=== PATIENT | female | born 2005 | race Caucasian/White ===

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

== ENCOUNTER 2024-08-13 08:49 | Outpatient (CLI) | payer MEDICAID, SELFPAY ==
--- NOTE | 2024-08-13 08:53 | USR_ITS ---
PROCEDURE INFORMATION: Exam: US After First Trimester, Transabdominal Exam date and time: 08/13/2024 9:03 AM Age: 18 years old Clinical indication: Screening exam; Routine US, uterus; Additional info: Anatomy check/supervision of second trimester LABS AND CLINICAL REPORTS: Gestational age (Established): 30 w 1 d Estimated due date (Established): 10/21/2024 TECHNIQUE: Imaging protocol: Real-time transabdominal obstetrical ultrasound of the maternal pelvis and a second or third trimester with image documentation. COMPARISON: No relevant prior studies available. FINDINGS: Gestation: Single live intrauterine gestation. heart rate: 148 bpm. presentation and position: Cephalic. Placenta: Unremarkable. No subchorionic bleed. Placenta is posterior. Amniotic fluid (Qualitative): Amniotic fluid is normal for gestational age. ANATOMY: midline falx: Normal cerebellum: Normal lateral ventricles: Normal cisterna magna: Normal choroid plexus: Normal face: Normal heart four-chamber view, heart size and position: Normal heart right ventricular outflow tract: Normal heart left ventricular outflow tract: Normal diaphragm: Normal kidneys: Normal stomach: Normal urinary bladder: Normal spine: Normal Umbilical cord and insertion: Normal. Normal 3 vessel cord upper limbs: Normal lower limbs: Normal external genitalia: Normal BIOMETRY: Gestational age (AUA): 30 weeks 3 days Estimated due date (AUA): 10/19/2024 Estimated weight: 1533.46 g. EFW by AC, BPD, FL, HC, [place] 1985, 40% percentile Biparietal diameter (BPD): 7.73 cm. EGA (BPD) is 31 w 0 d. 65.8 % percentile Head circumference (HC): 27.64 cm. EGA (HC) is 30 w 2 d. 17.8 % percentile Abdominal circumference (AC): 26.03 cm. EGA (AC) is 30 w 1 d. 46.1 % percentile Femur length (FL): 5.75 cm. EGA (FL) is 30 w 1 d. 34.2 % percentile HC/AC: 1.06. (Normal range: 0.97 - 1.18) FL/HC: 20.8. (Normal range: 19.24 - 21.36) FL/BPD: 74.39. (Normal range: 71 - 87) FL/AC: 22.09. (Normal range: 20 - 24) MATERNAL: Uterus: Unremarkable. Cervix: Unremarkable closed cervix measuring 3.3 cm in length. Right ovary/adnexa: Obscured by lack of adequate acoustic window. Left ovary/adnexa: Obscured by lack of adequate acoustic window. Intraperitoneal space: No intraperitoneal free fluid. US/US OB >= 14 weeks fetus [id number] IMPRESSION: Single live intrauterine gestation with estimated age of 30 weeks 3 days and weight of 1533 g.
== END 2024-08-13 08:50 | disposition home or self-care (01) ==
LOC: RAD 08:52
PROVIDERS: PCP Family Medicine; Visit Provider Family Medicine
DX: Z34.82 Encounter for supervision of other normal pregnancy, second trimester (principal)
CPT/HCPCS: 76805

== ENCOUNTER 2024-10-24 18:21 | Inpatient (IN) | payer MEDICAID, SELFPAY ==
[2024-10-24] VITALS (11 sets, daily range): BP systolic 120–139; BP diastolic 78–88; PULSE 71–97; RESP 15; TEMP 36.8; BMI 30.4
[2024-10-24] MEDS: miSOPROStol 100 mcg tablet 25 MCG VAGINAL (12:07)
[2024-10-24 12:23] LABS: Basophils % 0.4 %; Eosinophils # 0.2 10^3/uL (0.0-0.8); Eosinophils % 2.5 %; Hematocrit 38.9 % (36-47); Lymphocytes # 1.1 10^3/uL (1.5-6.5); Lymphocytes % 14.8 %; Mean Corpuscular HGB Conc 32.6 g/dL (30-55); Mean Corpuscular Hemoglobin 28.7 pg (27-33); Mean Corpuscular Volume 87.8 fl (85-98); Mean Platelet Volume 12.1 fL (7.4-10.4); Monocytes # 0.5 10^3/uL (0.2-0.9); Neutrophils # 5.42 10^3/uL (1.8-8.0); Neutrophils % 74.9 %; Nucleated Red Blood Cells % 0 %; Platelet Count 162 10^3/cmm (157-399); Red Blood Count 4.43 10^6/uL (3.85-5.65); Red Cell Distribution Width 15.8 % (12.1-15.1); White Blood Count 7.24 10^3/uL (4.5-13.0)
[2024-10-24] MEDS: ampicillin 2,000 MG in sodium chloride 0.9% (plus) 50 ML 100 MG IV (12:37)
--- NOTE | 2024-10-24 13:19 | PM.OBGYHP ---
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 course complicated by mild anemia- on iron supplementation. Denies cramping/contractions, LOF, vaginal bleeding. Good movement. care was good- presented as transfer of care with good initial care at [facility]. Present Details : 1 Para: 0 Labs Blood type OB HPI: O (+) positive Rubella: Immune RPR: Negative GBS: Positive HBsAG: Negative Other Lab Information: INitial H/H 14.4/43.8 HIV negative HCV Ab negative NIPT low risk 1hr GTT pased (119) 3rd trimester H/H 10.9/32.1 Review of Systems Const: Reports: chills; Denies: fever(s) Card: Denies: chest pain or palpitations Resp: Reports: dyspnea and productive cough : Denies: genital lesions Skin/Breast: Denies: rash or pruritus Medications/Allergies Home Medications ?Medication ?Instructions ?Recorded ?Confirmed ?Last Taken ?Type amoxicillin 875 mg tablet 875 mg PO BID 10 days #20 tabs 06/21/22 06/21/22 Unknown Rx Allergies Allergy/AdvReac Type Severity Reaction Status Date / Time No Known Allergies Allergy Verified 06/21/22 14:41 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: Social History Smoking and tobacco/nicotine status: never used tobacco/nicotine Second hand smoke exposure: No History History History 2 Term 0 0 Miscarriages/Ectopic 1 Living Children 0 Vitals/I&O/Wt Last Vital Signs Pulse 97 10/24/24 11:43 Resp 15 10/24/24 11:57 BP 127/78 10/24/24 11:43 O2 Del Method Room Air 10/24/24 11:41 Weight last 48 hrs Weight 177 lb Physical Exam Const: COMMON NORMALS: no acute distress, patient oriented x3, healthy appearing and well nourished Resp: COMMON NORMALS: normal respiratory effort and clear to auscultation bilaterally Cardio: COMMON NORMALS: regular rate, regular rhythm and No murmurs present (Cardio) : OTHER: Gravid, S=D Extremity: NARRATIVE EXTREMITY EXAM: No LE edema Psych: COMMON NORMALS: normal affect and speech normal Data 10/24/24 11:35 Results Labs OB ([facility]): Blood Type O Positive 10/24/24 Antibody Screen Negative 10/24/24 Hct 38.9 % (36-47) 10/24/24 Hgb 12.70 g/dL (12.4-14.8) 10/24/24 Rho(D) Type Rh positive 10/24/24 Plt Count 162 10^3/cmm (157-399) 10/24/24 OB Ultrasound Anatomy US EFW 40% at approx 30 weeks A&P Assessment and plan (1) Encounter for induction of labor: (2) Term : Plan 19yo at 40w3d presenting for induction of labor. Routine CBC, Blood typing. Initial SVE 1/70/-3, Category I FHT Cytotec dose x 1 with recheck in 4 hours unless indicated earlier Intermittent EFM as long as Cateogry I FHT Fentanyl protocol, may have epidural when desired Discussed plan of care with patient and agreeable to proceed PDMP PDMP Reviewed: Not Reviewed Attestations Medical Necessity Statement*: Nai Cowan's hospital stay will require greater than 2 midnights for labor and delivery and care Coding Level of Care Code Acute Code for Chg Fwd Diagnoses Encounter for induction of labor Z34.90 Term Z34.90
[2024-10-24] MEDS: dextrose 5%-lactated ringers 1,000 ML 125 ML IV (13:37)
[2024-10-24] MEDS: ampicillin 1,000 MG in sodium chloride 0.9% (plus) 50 ML 100 MG IV ×2 (17:19→21:36)
[2024-10-24] MEDS: lactated ringers 1,000 ML 999 ML (21:00)
--- NOTE | 2024-10-24 21:02 | ANES.PROC ---
Documented by User: Carline Rose CRNA 10/24/24 21:03 Anesthesia Procedures Procedure/Date: 10/24/24 US guided PIV placed by [employer] ENGINEER at this time. 20g R FA. Documented by User: Johnny Edouard DO 10/25/24 09:01 Anesthesia Procedures Procedure/Date: 10/25/24
--- NOTE | 2024-10-24 21:05 | ANES.PREANE2 ---
Pre-Anesthetic Assessment Height/Weight: Height 1.63 m Weight 80.286 kg Pulse Resp BP O2 Del Method 88 15 126/82 Room Air 10/24/24 20:10 10/24/24 11:57 10/24/24 20:10 10/24/24 11:41 Preop Diagnosis: IUP labor epidural Familial anesthetic complications: none Was Beta Raegan taken within 24 hours: N/A Was Clonidine taken within 24 hours: N/A Social No alcohol and No tobacco Exam alert and oriented x 3 Airway Submandibular: within normal limits Cervical ROM: within normal limits Mallampati: Class II Dentition: full History/ROS No significant complaints Anesthetic Plan ASA status: 2 Anesthesia: Anesthesia Evaluation and Regional (specify below) Medications/Allergies Home Medications ?Medication ?Instructions ?Recorded ?Confirmed ?Last Taken ?Type amoxicillin 875 mg tablet 875 mg PO BID 10 days #20 tabs 06/21/22 06/21/22 Unknown Rx Allergies Allergy/AdvReac Type Severity Reaction Status Date / Time No Known Allergies Allergy Verified 06/21/22 14:41 Current Medications Generic Name Dose Route Start Last Admin Trade Name Bertha PRN Reason Stop Dose Admin Dextrose/Lactated Ringer's 1,000 mls @ 125 mls/hr 10/24/24 11:45 10/24/24 13:37 Dextrose 5%-Lactated Ringers IV 125 mls/hr .Q8H MARIEL Administration Ampicillin Sodium 1,000 mg/ 50 mls @ 100 mls/hr 10/24/24 16:30 10/24/24 17:19 Sodium Chloride IV 100 mls/hr Q4H MARIEL Administration Protocol [facility] Anesthesia Social History Smoking and tobacco/nicotine status: never used tobacco/nicotine Second hand smoke exposure: No Female Reproductive History : 1 Data Anesthesia 10/24/24 11:35 Short CBC 10/24/24 Range/Units 11:35 WBC 7.24 (4.5-13.0) 10^3/uL Hgb 12.70 (12.4-14.8) g/dL Hct 38.9 (36-47) % MCV 87.8 (85-98) fl Plt Count 162 (157-399) 10^3/cmm Neut % (Auto) 74.9 % Neut # (Auto) 5.42 (1.8-8.0) 10^3/uL Blood Bank 10/24/24 11:35 Blood Type O Positive Rho(D) Type Rh positive Antibody Screen Negative Cardiac Studies: No Data to Display
[2024-10-24 21:57] LABS: Actim Prom Negative
[2024-10-25] VITALS (89 sets, daily range): BP systolic 114–172; BP diastolic 58–99; PULSE 66–99; RESP 16–18; TEMP 36.5–38.5; O2SAT 89–100
[2024-10-25] MEDS: ampicillin 1,000 MG in sodium chloride 0.9% (plus) 50 ML 100 MG IV ×5 (01:30→16:26)
[2024-10-25] MEDS: oxytocin 30 UNIT/500 ML BAG IV (02:00)
[2024-10-25] MEDS: fentaNYL 50 mcg/mL INJ 2mL IVP ×2 (05:45→07:10)
[2024-10-25] MEDS: lactated ringers 1,000 ML 999 ML IV (07:45)
[2024-10-25] MEDS: ondansetron 2 mg/ML SDV 2 mL 4 MG IVP ×2 (08:15→16:23)
[2024-10-25] MEDS: ROPivacaine syringe 100 MG/50 ML SYRINGE 10 MG EPIDURAL ×2 (08:56→12:44)
--- NOTE | 2024-10-25 09:01 | P.ANES_ITS ---
Anesthesia Procedures Procedure/Date: 10/25/24 Epidural: Time Out Performed: Yes Consents Signed: Procedure Consent Consent: requested by attending/covering physician and from patient Lumbar Level: L3-L4 Epidural position: sitting Epidural procedure: sterile prep of area, 1% lidocaine to numb the area, 18 g needle, negative for paresthesia p assed, neg for paresthesia, test dose given, 1.5% xylocaine 1:200k epi, 0.2% Ropivacaine bolus ml (5mls), placed PCEA, no systemic response, sterile dressing applied, L.U.D. no apparent complications and 0.2% Ropiavacaine @ mls/hr (10mls/hr)
[2024-10-25] MEDS: lidocaine 2% INJ 20 mL INJECTION (18:11)
--- NOTE | 2024-10-25 18:52 | PM.DELIVERY ---
Delivery Note: Date of delivery: October 25, 2024 Pre-delivery diagnoses: Term Post-delivery diagnoses: Term delivery of viable male Procedure: Spontaneous Vaginal Delivery Delivering Physician: Milly Clayton DO Estimated blood loss (mL): 350 Pre-Delivery Course: Admitted on 10/24/24 for induction of labor. Initial SVE 1/70/-3 and given 1 dose cytotec. Rechecked 4 hours later with SVE 1/80/-3. At this time toco with q1-3 minutes contractions. Given bolus IV fluids with intermittent monitoring over several hours and contractions spaced out and was started on low dose pitocin. AROM then performed at 7:40am on 10/25/24. She then gradually progressed to complete. FHT Category 1 throughout. Delivery: Patient progressed to complete. Patient placed in lithotomy position. Patient pushed with adequate effort. Head delivered in JUAN position, loose nuchal cord x 1 was present and easily reduced. Shoulders and rest of body delivered without difficulty with adequate epidural anesthesia. Mouth and nares bulb suctioned. Cord clamped and cut after 1 minute delay. placed on maternal abdomen. Placenta spontaneously delivered and noted to be intact. Pitocin started. Fundus was noted to be firm. The vagina and cervix were inspected and midline 2nd degree and left labial abrasion lacerations were noted. 2nd degree laceration repaired with 3-0 vicryl. Additional 6cc lidocaine without epinephrine used for additional local anesthesia. Fundus was again noted to be firm. Male born at 1800 on 10/25/24 at 40w4d with 8/9 weighing 9lb 7oz and measuring 22.25 in length, 15.5 head circumference, 13.5 inch chest circumference Placenta noted to be intact with centrally inserted umbilical cord and 3 vessel cord, numerous calcifications noted Complications: Maternal none Infant none History History History 2 Term 1 0 Miscarriages/Ectopic 1 Living Children 1 A&P Assessment and plan (1) Spontaneous vaginal delivery: PDMP PDMP Reviewed: Not Reviewed Coding Level of Care Code Acute Code for Chg Fwd Diagnoses Spontaneous vaginal delivery O80
[2024-10-25] MEDS: oxytocin 30 UNIT/500 ML BAG 600 UNIT IV (19:00)
[2024-10-25] MEDS: ibuprofen 800 mg tablet PO (20:06)
[2024-10-25] MEDS: acetaminophen 325 mg Tablet 650 MG PO (20:07)
[2024-10-26 00:35] VITALS: BP 134/75; PULSE 72; RESP 16; TEMP 36.8; O2SAT 97
[2024-10-26 02:00] VITALS: BP 124/75; PULSE 96; RESP 16; TEMP 36.5; O2SAT 96
--- NOTE | 2024-10-26 03:21 | PC.NURSE ---
Straight cath patient at 1945 d/t patient being unable to urinate on bedpan. Fundus rising and folley had been removed several hours before.
[2024-10-26 04:40] VITALS: BP 115/71; PULSE 66; RESP 15; TEMP 36.6; O2SAT 98
[2024-10-26 07:21] LABS: Hematocrit 32.8 % (36-47); Mean Corpuscular HGB Conc 32.3 g/dL (30-55); Mean Corpuscular Hemoglobin 28.5 pg (27-33); Mean Corpuscular Volume 88.2 fl (85-98); Mean Platelet Volume 12.2 fL (7.4-10.4); Platelet Count 147 10^3/cmm (157-399); Red Blood Count 3.72 10^6/uL (3.85-5.65); Red Cell Distribution Width 15.9 % (12.1-15.1); White Blood Count 13.61 10^3/uL (4.5-13.0)
--- NOTE | 2024-10-26 07:39 | P.PN_ITS ---
TITLE MANAGER Subjective 2 Subjective: Interval history: Doing well overnight. She has been ambulating without difficulty and has urinated. Passing gas but has not yet had a bowel movement. Reports her bleeding is a little bit heavier than a period and has been consistent. Changing a pad every couple of hours. Her pain is well-controlled with p.o. medications. She is eating without nausea or vomiting. Labor: Station: +2 Amniotic Membrane Status: Ruptured Monitor Mode: Palpation Contraction Pattern: Regular Vitals/I&O/Wt Last Vital Signs Temp 97.8 F 10/26/24 04:40 Pulse 66 10/26/24 04:40 Resp 15 10/26/24 04:40 BP 115/71 10/26/24 04:40 Pulse Ox 98 10/26/24 04:40 O2 Del Method Room Air 10/26/24 04:40 10/25/24 10/26/24 10/26/24 22:59 06:59 14:59 Intake Total 1582.667 / 2747.000 Output Total 900 / 900 Balance 682.667 / 1847.000 Weight last 48 hrs Weight 177 lb Physical Exam 2 Const: COMMON NORMALS: no acute distress, patient oriented x3, healthy appearing and well nourished Resp: COMMON NORMALS: normal respiratory effort and clear to auscultation bilaterally AUSCULTATION: clear to auscultation bilaterally Cardio: COMMON NORMALS: regular rate, regular rhythm and No murmurs present (Cardio) RATE: regular rate RHYTHM: regular rhythm : OTHER: Uterine fundus firm and at the umbilicus Extremity: NARRATIVE EXTREMITY EXAM: No LE edema Neuro: COMMON NORMALS: patient oriented x3 Psych: COMMON NORMALS: normal affect and speech normal SPEECH: Yes normal speech Urinary Catheter Management: [place]: Cath Placed During This Visit: yes, but has since been removed by the nurse Reason for Continuing Indwelling Catheter: Decision to DC Catheter Urinary Catheter Date of Insertion: 10/25/24 Urinary Catheter Time of Insertion: 10:25 Date Urinary Catheter Removed: 10/25/24 Time Urinary Catheter Discontinued: 14:55 Data 10/26/24 06:29 A&P Assessment and plan (1) Spontaneous vaginal delivery: (2) Anemia: Plan PPD#1 s/p without complication Encourage ambulation Regular diet May shower Continue scheduled ibuprofen with as needed Tylenol as needed Routine vitals per protocol CBC with mild anemia and appropriate drop since delivery?will plan to continue once daily iron supplement Anticipate discharge home tomorrow PDMP PDMP Reviewed: Not Reviewed Attestations 2 Medical Necessity Statement*: Cooperraza Barry Cowan's hospital stay will require greater than 2 midnights for labor and delivery and care Coding Level of Care Code Acute Code for Chg Fwd Diagnoses Spontaneous vaginal delivery O80 Anemia D64.9
[2024-10-26 09:30] VITALS: BP 133/76; PULSE 90; RESP 16; TEMP 36.6; O2SAT 98
[2024-10-26] MEDS: PRENATAL VIT NO.130/IRON/FOLIC 1 EACH TABLET PO (09:34)
[2024-10-26] MEDS: ferrous sulfate EC 325 mg Tablet PO (09:34)
[2024-10-26] MEDS: docusate sodium 100 mg Capsule PO ×2 (09:34→17:41)
[2024-10-26] MEDS: ibuprofen 800 mg tablet PO ×3 (09:34→20:38)
--- NOTE | 2024-10-26 10:33 | ANE.PACU2 ---
Inpatient post-anesthesia follow up: Airway intact: Yes Vital signs: Temperature 97.6 F Pulse Rate 65 Respiratory Rate 15 Blood Pressure 103/56 Pulse Oximetry 98 Oxygen Delivery Me thod Room Air Oxygen Flow Rate Fraction of Inspir ed Oxygen Hydration adequate: Yes Nausea and vomiting: No Pain level: 1 Mental status: Baseline Epidural Start/End: Epidural Start Date: 10/25/24 Epidural Start Time: 08:48 Epidural End Date: 10/26/24 Epidural End Time: 03:16
[2024-10-26 16:00] VITALS: BP 125/79; PULSE 87; RESP 16; TEMP 36.6
[2024-10-26 20:36] VITALS: BP 126/81; PULSE 98; RESP 16; TEMP 36.8; O2SAT 96
[2024-10-27 04:14] VITALS: BP 103/56; PULSE 65; RESP 15; TEMP 36.4; O2SAT 98
[2024-10-27] MEDS: PRENATAL VIT NO.130/IRON/FOLIC 1 EACH TABLET PO (08:10)
[2024-10-27] MEDS: docusate sodium 100 mg Capsule PO (08:10)
[2024-10-27] MEDS: ferrous sulfate EC 325 mg Tablet PO (08:10)
[2024-10-27] MEDS: ibuprofen 800 mg tablet PO (08:10)
--- NOTE | 2024-10-27 11:14 | P.DS_ITS ---
Discharge Providers SECRETARY ADMINISTRATIVE ASSISTANT Date of Admission: 10/24/24 18:21 Date of Discharge: 10/27/24 Attending Provider at Admission: Milly Clayton DO Attending Provider at Discharge: Milly Clayton DO Primary Care Provider: Alissa Orozco MD Diagnoses at Discharge Discharge Diagnosis (1) Spontaneous vaginal delivery: Status: Acute (2) Anemia: Status: Acute Reason for Visit Reason for Visit: Induction of labor Hospital Course Hospital Course Pre-Delivery Course: Admitted on 10/24/24 for induction of labor. Initial SVE 1/70/-3 and given 1 dose cytotec. Rechecked 4 hours later with SVE 1/80/-3. At this time toco with q1-3 minutes contractions. Given bolus IV fluids with intermittent monitoring over several hours and contractions spaced out and was started on low dose pitocin. AROM then performed at 7:40am on 10/25/24. She then gradually progressed to complete. FHT Category 1 throughout. Delivery: Patient progressed to complete. Patient placed in lithotomy position. Patient pushed with adequate effort. Head delivered in JUAN position, loose nuchal cord x 1 was present and easily reduced. Shoulders and rest of body delivered without difficulty with adequate epidural anesthesia. Mouth and nares bulb suctioned. Cord clamped and cut after 1 minute delay. placed on maternal abdomen. Placenta spontaneously delivered and noted to be intact. Pitocin started. Fundus was noted to be firm. The vagina and cervix were inspected and midline 2nd degree and left labial abrasion lacerations were noted. 2nd degree laceration repaired with 3-0 vicryl. Additional 6cc lidocaine without epinephrine used for additional local anesthesia. Fundus was again noted to be firm. Male born at 1800 on 10/25/24 at 40w4d with 8/9 weighing 9lb 7oz and measuring 22.25 in length, 15.5 head circumference, 13.5 inch chest circumference Placenta noted to be intact with centrally inserted umbilical cord and 3 vessel cord, numerous calcifications noted Complications: Maternal none Infant none course: Patient underwent on 10/25/2024. course was uncomplicated. Following delivery patient ambulated well, tolerated a normal diet without nausea or vomiting. Pain was well-controlled on PO medications, formula feeding infant, no leg/calf pain, no calf/leg swelling, normal urination, passing gas. Vaginal bleeding thin lochia and decreasing. labs significant for initial hemoglobin of 12.7 and decreased to 10.6 . She is on once daily iron supplementation and will be continued on this at home. Follow-up planned for 2 and 6 weeks . Warning signs for endometritis, pre- eclampsia, DVT/PE, mastitis were reviewed, discussed additional warning signs including increased vaginal bleeding, worsening abdominal pain. Pelvic rest and activity precautions reviewed as well. She is discharged on 10/27/2024 in stable condition. Information Peripartum Data: Delivery Method: Vaginal Physical Exam Const: COMMON NORMALS: no acute distress, patient oriented x3, healthy appearing and well nourished Resp: COMMON NORMALS: normal respiratory effort and clear to auscultation bilaterally AUSCULTATION: clear to auscultation bilaterally Cardio: COMMON NORMALS: regular rate, regular rhythm and No murmurs present (Cardio) RATE: regular rate RHYTHM: regular rhythm : OTHER: Uterine fundus firm and at the umbilicus Extremity: NARRATIVE EXTREMITY EXAM: No LE edema Neuro: COMMON NORMALS: patient oriented x3 Psych: COMMON NORMALS: normal affect and speech normal SPEECH: Yes normal speech Urinary Catheter Management: [place]: Cath Placed During This Visit: yes, but has since been removed by the nurse Reason for Continuing Indwelling Catheter: Decision to DC Catheter Urinary Catheter Date of Insertion: 10/25/24 Urinary Catheter Time of Insertion: 10:25 Date Urinary Catheter Removed: 10/25/24 Time Urinary Catheter Discontinued: 14:55 History History History 2 Term 1 0 Miscarriages/Ectopic 1 Living Children 1 Discharge Data Studies Completed and Pending Laboratory Results WBC 13.61 10^3/uL (4.5-13.0) H 10/26/24 06:29 RBC 3.72 10^6/uL (3.85-5.65) L 10/26/24 06:29 Hgb 10.60 g/dL (12.4-14.8) L 10/26/24 06: Hct 32.8 % (36-47) L 10/26/24 06:29 MCV 88.2 fl (85-98) 10/26/24 06:29 MCH 28.5 pg (27-33) 10/26/24 06: MCHC 32.3 g/dL (30-55) 10/26/24 06:29 RDW 15.9 % (12.1-15.1) H 10/26/24 06:29 Plt Count 147 10^3/cmm (157-399) L 10/26/24 06:29 MPV 12.2 fL (7.4-10.4) H 10/26/24 06:29 Neut % (Auto) 74.9 % 10/24/24 11:35 Lymph % (Auto) 14.8 % 10/24/24 11:35 Carson % (Auto) 7.0 % 10/24/24 11:35 Eos % (Auto) 2.5 % 10/24/24 11:35 Baso % (Auto) 0.4 % 10/24/24 11:35 Neut # (Auto) 5.42 10^3/uL (1.8-8.0) 10/24/24 11:35 Lymph # (Auto) 1.1 10^3/uL (1.5-6.5) L 10/24/24 11:35 Carson # (Auto) 0.5 10^3/uL (0.2-0.9) 10/24/24 11:35 Eos # (Auto) 0.2 10^3/uL (0.0-0.8) 10/24/24 11:35 Baso # (Auto) 0.0 10^3/uL (0.0-0.1) 10/24/24 11:35 Nucleated RBC % (auto) 0 % 10/24/24 11:35 Nucleated RBCs # 0.0 /100WBC 10/24/24 11:35 Insulin-like GF I Negative 10/24/24 21:45 Blood Type O Positive 10/24/24 11:35 Rho(D) Type Rh positive 10/24/24 11:35 Antibody Screen Negative 10/24/24 11:35 Vitals Last Vital Signs Temp 97.6 F 10/27/24 04:14 Pulse 65 10/27/24 04:14 Resp 15 10/27/24 04:14 BP 103/56 10/27/24 04:14 Pulse Ox 98 10/27/24 04:14 O2 Del Method Room Air 10/27/24 04:14 Results Labs OB ([facility]): Blood Type O Positive 10/24/24 Antibody Screen Negative 10/24/24 Hct 32.8 % (36-47) L 10/26/24 Hgb 10.60 g/dL (12.4-14.8) L 10/26/24 Rho(D) Type Rh positive 10/24/24 Plt Count 147 10^3/cmm (157-399) L 10/26/24 Discharge Plan Discharge Patient Disposition: Home Condition: Stable Prescriptions: New docusate sodium 100 mg Capsule 100 mg PO BID Qty: 60 0RF ibuprofen 800 mg Tablet 800 mg PO TID Qty: 90 0RF Vitamin 27 mg iron- 800 mcg Tablet 1 tab PO DAILY Qty: 90 0RF ferrous sulfate 325 mg (65 mg iron) Tablet,Delayed Release (Dr/Ec) 325 mg PO BREAKFAST Qty: 30 0RF Discontinued amoxicillin 875 mg tablet 875 mg PO BID 10 Days Qty: 20 0RF Discharge Orders: Discharge Order (Routine); Ordered 10/27/24 Ordered By: Milly Clayton Referrals: Milly Clayton DO [Physician] - 11/08/24 2:45 pm (6 week appointment scheduled 12/07/24 @ 2:30 p.m) Discharge Diet: Regular Discharge Activity: Increase activity as tolerated Patient Instructions: Depression (DC), Opioid Safety (DC), Preeclampsia and Eclampsia After Delivery (GEN), Hemorrhage (DC), OB Discharge Report, OB Food/Drug Interaction Guide, OB Care at Home, Opioid Safety, OB Vaginal Deliveries, Abnormal Bleeding Activity Restrictions/Additional Instructions: Pelvic rest for 6 weeks Discharge Attestations SECRETARY ADMINISTRATIVE ASSISTANT Time Spent in Discharge Care*: less than 30 min Coding Level of Care Code Acute Code for Chg Fwd Diagnoses Spontaneous vaginal delivery O80 Anemia D64.9
[2024-10-27 12:34] VITALS: BP 136/83; PULSE 85; RESP 16; TEMP 36.6; O2SAT 99
== END 2024-10-27 12:35 | disposition home or self-care (01) | DRG 807 ==
LOC: OPOB 18:22 → OBGYN 18:22
PROVIDERS: Admitting Provider Family Medicine; PCP Family Medicine; Visit Provider Family Medicine
DX: O48.0 Post-term pregnancy (principal); Z37.0 Single live birth; Z3A.40 40 weeks gestation of pregnancy; O99.02 Anemia complicating childbirth; D64.9 Anemia, unspecified; O69.81X0 Labor and delivery complicated by cord around neck, without compression, not applicable or unspecified; O70.1 Second degree perineal laceration during delivery
CPT/HCPCS: 36415; 51702; 59025; 59409; 84112; 85025; 85027; 86850; 86900; 96374; 96376; J0290; J2405; J2590; J2795; J3010; J7120; J7121

== ENCOUNTER → 2025-09-11 15:58 | Outpatient (BNVA) | payer MEDICAID, SELFPAY | PROVIDERS: PCP Family Medicine; Visit Provider Registered Nurse Neonatal Intensive Care | DX: R09.81 Nasal congestion (principal) | CPT/HCPCS: 87400; 87426 ==